=== PATIENT | male | born 1995 | race Caucasian/White ===

== ENCOUNTER → 2019-07-23 | Outpatient (CLI) | payer MEDICAID ==
--- NOTE | 2019-07-23 12:45 | REP ---
Right ankle series: Four views. History: Right foot and ankle pain for 2 weeks after injury. Findings: Four views of the right ankle demonstrate intact ankle mortise. There is mild anterior soft tissue swelling. Mild medial swelling is seen. No fracture is visible. Ankle mortise is intact. No hindfoot fracture is seen. The anterior margin of the Achilles tendon appears intact. Impression: Anteromedial soft tissue swelling. No fracture noted. Electronically Signed by Coy Hood MD 07/23/2019 12:37 P
--- NOTE | 2019-07-23 12:46 | REP ---
Right foot series: Four views. History: Pain 2 weeks post trauma. Findings: Four views right foot demonstrate overall normal mineralization. Bones, joints, and soft tissues are unremarkable. Impression: Negative right foot radiographs. Electronically Signed by Coy Hood MD 07/23/2019 12:37 P
== END ==
LOC: M LRY 12:18
PROVIDERS: ATTEND Nurse Practitioner Family
DX: M25.571 Pain in right ankle and joints of right foot (principal)